=== PATIENT | female | born 1980 | race Caucasian/White ===

== ENCOUNTER 2024-10-26 20:54 | Inpatient (IN) | payer BC, OTHER ==
[~2024-10-26] VITALS: Ht 172.7 cm; Wt 117.0 kg
[2024-10-26 21:51] LABS: HEMATOCRIT. 32.7 % (36.0-48.0); HEMOGLOBIN. 10.8 g/dL (12.0-16.0); MEAN CORPUSCULAR HEMOGLOBIN 26.3 pg (28.0-32.0); MEAN CORPUSCULAR HGB CONC 32.9 g/dL (31.0-37.0); MEAN PLATELET VOLUME 9.2 fl (7.4-10.4); PLATELET 315 x1000/uL (130-400); RED BLOOD CELL COUNT 4.09 mill/uL (4.2-5.4); RED CELL DISTRIBUTION WIDTH 15.9 % (11.6-14.6); WHITE BLOOD COUNT 22.3 x1000/uL (4.5-11.0)
[2024-10-26 21:56] LABS: CHLORIDE 93 mEq/L (98-107); POTASSIUM 3.4 mEq/L (3.5-5.1); SODIUM 129 mEq/L (136-145)
[2024-10-26 21:57] LABS: CALCIUM 8.8 mg/dL (8.7-10.4); CARBON DIOXIDE 26 mEq/L (21-32)
[2024-10-26 22:00] LABS: DIFFERENTIAL COMMENT 1
[2024-10-26 22:02] LABS: CREATININE 0.8 mg/dL (0.6-1.0); GLUCOSE 126 mg/dL (70-105); UREA NITROGEN BLOOD 10 mg/dL (9-23)
[2024-10-26 23:07] LABS: ANISOCYTOSIS 1+; PLATELET ESTIMATE NORMAL
[2024-10-26 23:11] LABS: ALANINE AMINOTRANSFERASE 63 IU/L (10-49); ALBUMIN 3.4 g/dL (3.2-4.8); ASPARTATE AMINOTRANSFERASE 44 IU/L (<34); BILIRUBIN DIRECT 0.3 mg/dL (<=3.0); BILIRUBIN TOTAL 0.5 mg/dL (0.1-1.0); PROTEIN TOTAL 6.2 g/dL (6.0-8.3)
[2024-10-26] MEDS: ONDANSETRON HCL 4MG/2ML INJ IV STA (23:35)
[2024-10-26] MEDS: MORPHINE SULFATE 4 MG/ML INJ (FOR IV/IM USE) IV STA (23:35)
[2024-10-27] MEDS: SODIUM CHLORIDE 0.9% 1,000 ML IV ONE (01:11)
[2024-10-27] MEDS: IOHEXOL-300 100 ML BOTTLE ONE (01:26)
[2024-10-27] MEDS: PIPERACILLIN/TAZO 3.375G/50ML 50 ML IV NR (03:37)
[2024-10-27] MEDS: HYDROCODONE/ACETAMINOPHEN 5/325MG TABLET PO ONE (03:44)
[2024-10-27] MEDS: ACETAMINOPHEN 325MG TABLET PO NR (04:35)
[2024-10-27] MEDS: SODIUM CHLORIDE 0.9% 1,000 ML IV NR (04:35)
[2024-10-27 05:30] VITALS: BP 139/72; PULSE 119; RESP 18; TEMP 38.3
[2024-10-27] MEDS ORDERED: ACETAMINOPHEN 325MG TABLET PO PRN (07:00)
[2024-10-27] MEDS ORDERED: ONDANSETRON HCL 4MG TABLET PO PRN (07:00)
[2024-10-27] MEDS ORDERED: NALOXONE HCL 0.4MG/ML VIAL IV PRN ×2 (07:45→18:45)
[2024-10-27 08:00] VITALS: BP 129/54; PULSE 60; RESP 18; TEMP 36.4; O2SAT 95
[2024-10-27] MEDS: VANCOMYCIN 1,750 MG in DEXT 5% WATER 250 ML IV NR (09:00)
[2024-10-27] MEDS: ACETAMINOPHEN 325MG TABLET PO PRN (09:30)
[2024-10-27 10:57] LABS: POTASSIUM 3.1 mEq/L (3.5-5.1)
[2024-10-27 10:58] LABS: CALCIUM 7.9 mg/dL (8.7-10.4)
[2024-10-27 11:03] LABS: CREATININE 1.1 mg/dL (0.6-1.0)
[2024-10-27 11:09] LABS: HEMATOCRIT. 27.8 % (36.0-48.0); HEMOGLOBIN. 8.9 g/dL (12.0-16.0); MEAN CORPUSCULAR HEMOGLOBIN 25.3 pg (28.0-32.0); MEAN CORPUSCULAR VOLUME 78.9 fL (81.0-99.0); MEAN PLATELET VOLUME 9.5 fl (7.4-10.4); PLATELET 236 x1000/uL (130-400); RED BLOOD CELL COUNT 3.52 mill/uL (4.2-5.4); RED CELL DISTRIBUTION WIDTH 16.3 % (11.6-14.6); WHITE BLOOD COUNT 12.9 x1000/uL (4.5-11.0)
[2024-10-27 11:21] LABS: DIFFERENTIAL COMMENT 1
[2024-10-27 12:00] VITALS: BP 108/62; PULSE 76; RESP 16; TEMP 36.2; O2SAT 96
[2024-10-27] MEDS ORDERED: DOCUSATE SODIUM 100MG CAPSULE PO PRN (12:15)
[2024-10-27] MEDS ORDERED: IPRATROPIUM/ALBUTEROL 0.5-3(2.5)MG/3ML NEB HHN PRN (12:15)
[2024-10-27] MEDS: SODIUM CHLORIDE 0.9% 1,000 ML IV SCH (12:15)
[2024-10-27] MEDS ORDERED: CLONIDINE 0.1MG TABLET PO PRN (12:15)
[2024-10-27] MEDS ORDERED: PIPERACILLIN/TAZO 3.375G/100ML 100 ML IV SCH (14:00)
[2024-10-27] MEDS: PIPERACILLIN/TAZO 3.375G/50ML 50 ML IV SCH (14:19)
[2024-10-27] MEDS: METOPROLOL TARTRATE 5MG/5ML VIAL IV NR (14:26)
[2024-10-27 14:34] LABS: MICROCYTOSIS 1+; PLATELET ESTIMATE NORMAL
[2024-10-27 15:06] LABS: IRON 16 ug/dL (50-170)
[2024-10-27 15:08] LABS: TOTAL IRON BINDING CAPACITY 335 ug/dl (250-425)
[2024-10-27 15:11] LABS: T4 FREE 0.82 ng/dL (0.89-1.76); THYROID STIMULATING HORMONE 12.76 uIU/mL (0.55-4.78)
[2024-10-27 16:00] VITALS: BP 101/56; PULSE 71; RESP 17; TEMP 37.3; O2SAT 97
[2024-10-27 16:48] LABS: CREATINE KINASE MB FRACTION < 0.5 ng/mL (0.5-3.6)
[2024-10-27 16:51] LABS: FERRITIN 95 ng/mL (10-291)
[2024-10-27 16:52] LABS: TRIOIODOTHYRONINE TOTAL 0.55 ng/ml (0.60-1.81)
[2024-10-27 16:54] LABS: FOLIC ACID (FOLATE) SERUM > 20.00 ng/mL (>5.38); VITAMIN B12 SERUM 474 pg/mL (211-911)
[2024-10-27] MEDS: KCL 20MEQ/100ML PREMIX 100 ML IV SCH (17:01)
[2024-10-27] MEDS: ONDANSETRON HCL 4MG/2ML INJ IV PRN (17:01)
[2024-10-27 17:08] LABS: TROPONIN I HIGH SENSITIVITY 38 ng/L (3.0-34)
[2024-10-27] MEDS: HYDROCODONE/ACETAMINOPHEN 10/325MG TABLET PO PRN (17:47)
[2024-10-27] MEDS ORDERED: DEXTROSE 50% WATER 50ML SYRINGE IV PRN (18:45)
[2024-10-27 19:03] LABS: CLARITY URINE CLOUDY (CLEAR); COLOR URINE DARK YELLOW (YELLOW); GLUCOSE URINE NEGATIVE (NEGATIVE); KETONES URINE NEGATIVE (NEGATIVE); LEUKOCYTE ESTERASE URINE 1+ (NEGATIVE); NITRITE URINE NEGATIVE (NEGATIVE); OCCULT BLOOD URINE 1+ (NEGATIVE); PROTEIN URINE 2+ (NEGATIVE)
[2024-10-27 19:16] LABS: BACTERIA URINE 1+; SQUAMOUS EPITHELIAL CELL URINE 1+ /lpf (RARE/1+)
[2024-10-27 19:26] LABS: *AMPHETAMINES SCREEN URINE NEGATIVE (NEGATIVE)
[2024-10-27 19:28] LABS: *BARBITURATES SCREEN URINE NEGATIVE (NEGATIVE); *BENZODIAZEPINES SCREEN URINE NEGATIVE (NEGATIVE); *COCAINE SCREEN URINE NEGATIVE (NEGATIVE); METHADONE URINE SCREEN NEGATIVE (NEGATIVE)
[2024-10-27 19:29] LABS: CANNABINOID URINE SCREEN NEGATIVE (NEGATIVE); ECSTASY MDMA SCREEN URINE NEGATIVE (NEGATIVE); OPIATES URINE SCREEN PRESUMPTIVE POSITIVE (NEGATIVE); PHENCYCLIDINE URINE SCREEN NEGATIVE (NEGATIVE)
[2024-10-27 20:00] VITALS: BP 141/88; PULSE 114; RESP 20; TEMP 37.2; O2SAT 100
[2024-10-27] MEDS: POTASSIUM CHLORIDE 20MEQ TABLET SR PO NR (20:53)
[2024-10-27] MEDS: BLOOD SUGAR DIAGNOSTIC STRIP TEST SCH (21:00)
[2024-10-27] MEDS: INSULIN LISPRO 100 UNITS/ML SUBCUT SCH (21:00)
[2024-10-27] MEDS ORDERED: VANCOMYCIN 1G PREMIX 200 ML IV SCH (21:00)
[2024-10-27] MEDS: VANCOMYCIN 750MG PREMIX 150 ML IV SCH (21:01)
[2024-10-27] MEDS: METOPROLOL TARTRATE 50MG TABLET PO SCH (21:03)
[2024-10-27] MEDS: MORPHINE SULFATE 2 MG/ML INJ (NOT FOR IM USE) IV NR (22:51)
[2024-10-28] VITALS (7 sets, daily range): BP systolic 80–127; BP diastolic 48–82; PULSE 87–123; RESP 18–20; TEMP 36.3–38.9; O2SAT 94–98
[2024-10-28] MEDS: HYDROCODONE/ACETAMINOPHEN 5/325MG TABLET PO PRN (03:51)
[2024-10-28] MEDS: PANTOPRAZOLE 40MG DR TABLET PO SCH (07:20)
[2024-10-28] MEDS: LEVOTHYROXINE SODIUM 50MCG TABLET PO SCH (10:45)
[2024-10-28] MEDS: DILTIAZEM HCL 30MG TABLET PO SCH (10:46)
[2024-10-28] MEDS: ACETAMINOPHEN 325MG TABLET PO PRN ×2 (10:46→21:35)
[2024-10-28] MEDS: CYANOCOBALAMIN 1000MCG/ML VIAL IM NR (10:47)
[2024-10-28] MEDS: FUROSEMIDE 40MG/4ML VIAL IVP NR (10:47)
[2024-10-28 11:41] LABS: HEMOGLOBIN. 9.8 g/dL (12.0-16.0); MEAN CORPUSCULAR HEMOGLOBIN 25.7 pg (28.0-32.0); MEAN CORPUSCULAR HGB CONC 32.5 g/dL (31.0-37.0); MEAN CORPUSCULAR VOLUME 78.9 fL (81.0-99.0); MEAN PLATELET VOLUME 9.9 fl (7.4-10.4); PLATELET 248 x1000/uL (130-400); RED CELL DISTRIBUTION WIDTH 16.5 % (11.6-14.6); WHITE BLOOD COUNT 10.5 x1000/uL (4.5-11.0)
[2024-10-28 11:44] LABS: DIFFERENTIAL COMMENT 1
[2024-10-28 11:46] LABS: INR 1.1; PROTHROMBIN TIME 11.5 sec (9.6-11.0)
[2024-10-28 11:52] LABS: CARBON DIOXIDE 21 mEq/L (21-32); CHLORIDE 95 mEq/L (98-107); SODIUM 126 mEq/L (136-145)
[2024-10-28 11:57] LABS: CREATININE 1.2 mg/dL (0.6-1.0); GLUCOSE 135 mg/dL (70-105)
[2024-10-28 11:58] LABS: UREA NITROGEN BLOOD 19 mg/dL (9-23)
[2024-10-28 11:59] LABS: ALANINE AMINOTRANSFERASE 53 IU/L (10-49); ALBUMIN 3.2 g/dL (3.2-4.8); ASPARTATE AMINOTRANSFERASE 79 IU/L (<34); CREATINE KINASE 115 IU/L (34-145)
[2024-10-28 12:00] LABS: BILIRUBIN DIRECT 0.5 mg/dL (<=3.0); BILIRUBIN TOTAL 0.9 mg/dL (0.1-1.0); PHOSPHORUS 2.2 mg/dL (2.5-4.9); PROTEIN TOTAL 6.1 g/dL (6.0-8.3)
[2024-10-28 12:34] LABS: CREATINE KINASE MB FRACTION < 0.5 ng/mL (0.5-3.6)
[2024-10-28] MEDS: FERROUS SULFATE 325MG TABLET PO SCH (13:40)
[2024-10-28 13:54] LABS: ANISOCYTOSIS 1+; MICROCYTOSIS 1+; PLATELET ESTIMATE NORMAL
[2024-10-28 14:13] LABS: TROPONIN I HIGH SENSITIVITY 189 ng/L (3.0-34)
[2024-10-28] MEDS: CEFAZOLIN 2000MG PREMIX 50 ML IV SCH (15:47)
[2024-10-28] MEDS ORDERED: SODIUM CHLORIDE 0.9% 500 ML IV NR (16:30)
[2024-10-28] MEDS: MIDODRINE HCL 5MG TABLET PO SCH (17:43)
[2024-10-29] VITALS: BP 115/63; PULSE 108; RESP 19; TEMP 37.9; O2SAT 98
[2024-10-29 04:00] VITALS: BP 128/76; PULSE 120; RESP 19; TEMP 36.2; O2SAT 96
[2024-10-29] MEDS: LEVOTHYROXINE SODIUM 100MCG TABLET PO SCH (06:44)
[2024-10-29 07:04] LABS: HEMATOCRIT. 26.5 % (36.0-48.0); HEMOGLOBIN. 8.9 g/dL (12.0-16.0); MEAN CORPUSCULAR HEMOGLOBIN 26.1 pg (28.0-32.0); MEAN CORPUSCULAR HGB CONC 33.6 g/dL (31.0-37.0); MEAN CORPUSCULAR VOLUME 77.8 fL (81.0-99.0); MEAN PLATELET VOLUME 10.1 fl (7.4-10.4); PLATELET 248 x1000/uL (130-400); RED BLOOD CELL COUNT 3.41 mill/uL (4.2-5.4); WHITE BLOOD COUNT 10.5 x1000/uL (4.5-11.0)
[2024-10-29 07:13] LABS: DIFFERENTIAL COMMENT 1
[2024-10-29 07:14] LABS: CHLORIDE 95 mEq/L (98-107); POTASSIUM 3.1 mEq/L (3.5-5.1); SODIUM 129 mEq/L (136-145)
[2024-10-29 07:15] LABS: CALCIUM 7.8 mg/dL (8.7-10.4); CARBON DIOXIDE 22 mEq/L (21-32)
[2024-10-29 07:19] LABS: CREATINE KINASE 90 IU/L (34-145)
[2024-10-29 07:20] LABS: CREATININE 1.2 mg/dL (0.6-1.0); GLUCOSE 132 mg/dL (70-105); UREA NITROGEN BLOOD 19 mg/dL (9-23)
[2024-10-29 07:21] LABS: CREATINE KINASE MB FRACTION 0.6 ng/mL (0.5-3.6)
[2024-10-29 07:22] LABS: PHOSPHORUS 2.4 mg/dL (2.5-4.9)
[2024-10-29 08:00] VITALS: BP 138/80; PULSE 112; RESP 20; TEMP 36.4; O2SAT 98
[2024-10-29 08:31] LABS: TROPONIN I HIGH SENSITIVITY 81 ng/L (3.0-34)
[2024-10-29] MEDS: POTASSIUM CHLORIDE 20MEQ TABLET SR PO NR (10:34)
[2024-10-29] MEDS: MAGNESIUM 2 G PREMIX 50 ML IV NR (10:34)
[2024-10-29 12:00] VITALS: BP 150/90; PULSE 103; RESP 22; TEMP 36.3; O2SAT 98
[2024-10-29] MEDS: POTASSIUM PHOSPHATE 20 MMOL in DEXT 5% WATER 243.3333 ML IV NR (14:00)
[2024-10-29 14:07] LABS: CORTISOL 22.2 ucg/dL
[2024-10-29 14:26] LABS: ANISOCYTOSIS 1+; MICROCYTOSIS 1+; PLATELET ESTIMATE NORMAL; TARGET CELLS FEW
[2024-10-29 14:39] LABS: HEPATITIS B SURFACE ANTIGEN NEGATIVE (Negative)
[2024-10-29 14:43] LABS: HEPATITIS A AB IGM NEGATIVE (Negative)
[2024-10-29 14:44] LABS: HEPATITIS B CORE AB IGM NEGATIVE (Negative)
[2024-10-29 14:45] LABS: HEPATITIS C AB NON REACTIVE (Neg) (Negative)
[2024-10-29 16:00] VITALS: BP 130/76; PULSE 91; RESP 16; TEMP 36.7; O2SAT 98
[2024-10-29] MEDS ORDERED: NON FORMULARY MED XX SCH (16:15)
[2024-10-29] MEDS: IRON SUCROSE COMPLEX 100 MG/5 ML ML IV SCH (18:12)
[2024-10-29 20:00] VITALS: BP 156/97; PULSE 108; RESP 19; TEMP 36.5; O2SAT 100
[2024-10-29] MEDS: FAMOTIDINE 20MG/2ML VIAL IV SCH (22:39)
[2024-10-30] VITALS (7 sets, daily range): BP systolic 136–171; BP diastolic 85–108; PULSE 87–110; RESP 18–20; TEMP 36.6–37.8; O2SAT 96–100
[2024-10-30 08:54] LABS: CARBON DIOXIDE 25 mEq/L (21-32); CHLORIDE 100 mEq/L (98-107); POTASSIUM 3.7 mEq/L (3.5-5.1); SODIUM 136 mEq/L (136-145)
[2024-10-30 08:55] LABS: CALCIUM 7.9 mg/dL (8.7-10.4)
[2024-10-30 09:00] LABS: CREATININE 0.9 mg/dL (0.6-1.0); GLUCOSE 87 mg/dL (70-105); TRIGLYCERIDE 309 mg/dL (0-150); UREA NITROGEN BLOOD 11 mg/dL (9-23)
[2024-10-30 09:01] LABS: LDL CHOLESTEROL 53 mg/dL (5-100)
[2024-10-30 09:02] LABS: CHOLESTEROL 116 mg/dL (<200); PHOSPHORUS 2.4 mg/dL (2.5-4.9)
[2024-10-30 09:06] LABS: HEMATOCRIT. 29.8 % (36.0-48.0); HEMOGLOBIN. 9.8 g/dL (12.0-16.0); MEAN CORPUSCULAR HGB CONC 32.8 g/dL (31.0-37.0); MEAN CORPUSCULAR VOLUME 79.3 fL (81.0-99.0); MEAN PLATELET VOLUME 10.1 fl (7.4-10.4); PLATELET 306 x1000/uL (130-400); RED BLOOD CELL COUNT 3.75 mill/uL (4.2-5.4); RED CELL DISTRIBUTION WIDTH 16.5 % (11.6-14.6); WHITE BLOOD COUNT 16.5 x1000/uL (4.5-11.0)
[2024-10-30 09:55] LABS: DIFFERENTIAL COMMENT 1
[2024-10-30] MEDS: POTASSIUM PHOSPHATE 20 MMOL in DEXT 5% WATER 243.3333 ML IV NR (11:08)
[2024-10-30] MEDS: POTASSIUM-SODIUM PHOSPHATE POWDER PACKET PO NR (12:10)
[2024-10-30] MEDS: MORPHINE SULFATE 4 MG/ML INJ (FOR IV/IM USE) IV PRN (13:19)
[2024-10-30 19:50] LABS: HDL CHOLESTEROL < 20 mg/dL (>65)
[2024-10-30 21:16] LABS: ANISOCYTOSIS 1+; MICROCYTOSIS 1+; PLATELET ESTIMATE NORMAL
[2024-10-31] VITALS (7 sets, daily range): BP systolic 120–170; BP diastolic 64–99; PULSE 90–123; RESP 17–20; TEMP 36.4–38.6; O2SAT 96–97
[2024-10-31 06:14] LABS: HEMOGLOBIN. 8.5 g/dL (12.0-16.0); MEAN CORPUSCULAR HEMOGLOBIN 26.6 pg (28.0-32.0); MEAN CORPUSCULAR HGB CONC 33.9 g/dL (31.0-37.0); MEAN CORPUSCULAR VOLUME 78.5 fL (81.0-99.0); MEAN PLATELET VOLUME 9.6 fl (7.4-10.4); PLATELET 309 x1000/uL (130-400); RED BLOOD CELL COUNT 3.18 mill/uL (4.2-5.4); RED CELL DISTRIBUTION WIDTH 16.5 % (11.6-14.6); WHITE BLOOD COUNT 16.3 x1000/uL (4.5-11.0)
[2024-10-31 06:33] LABS: CHLORIDE 101 mEq/L (98-107); DIFFERENTIAL COMMENT 1; POTASSIUM 3.8 mEq/L (3.5-5.1); SODIUM 135 mEq/L (136-145)
[2024-10-31 06:34] LABS: CALCIUM 7.9 mg/dL (8.7-10.4); CARBON DIOXIDE 24 mEq/L (21-32)
[2024-10-31 06:39] LABS: CREATININE 0.9 mg/dL (0.6-1.0); GLUCOSE 136 mg/dL (70-105)
[2024-10-31 06:40] LABS: UREA NITROGEN BLOOD 6 mg/dL (9-23)
[2024-10-31 06:42] LABS: PHOSPHORUS 2.8 mg/dL (2.5-4.9)
[2024-10-31] MEDS ORDERED: MORPHINE SULFATE 4 MG/ML INJ (FOR IV/IM USE) IV PRN (13:45)
[2024-10-31] MEDS: CEFTRIAXONE 2GM/50ML 50 ML IV SCH (15:03)
[2024-10-31] MEDS ORDERED: ACETAMINOPHEN 500MG TABLET PO SCH (15:30)
[2024-10-31 16:41] LABS: MICROCYTOSIS 1+; PLATELET ESTIMATE NORMAL
[2024-10-31] MEDS ORDERED: ACETAMINOPHEN 500MG TABLET PO PRN (17:00)
[2024-10-31] MEDS: MORPHINE SULFATE 2 MG/ML INJ (NOT FOR IM USE) IV PRN (17:11)
[2024-10-31] MEDS: SENNOSIDES/DOCUSATE SOD 8.6/50MG TABLET PO SCH (23:52)
[2024-10-31] MEDS: HYDROCODONE/ACETAMINOPHEN 5/325MG TABLET PO PRN (23:53)
[2024-11-01 04:00] VITALS: BP 122/77; PULSE 101; RESP 19; TEMP 37.2; O2SAT 98
[2024-11-01 07:40] LABS: HEMATOCRIT. 24.5 % (36.0-48.0); HEMOGLOBIN. 7.9 g/dL (12.0-16.0); MEAN CORPUSCULAR HEMOGLOBIN 25.9 pg (28.0-32.0); MEAN CORPUSCULAR HGB CONC 32.3 g/dL (31.0-37.0); MEAN CORPUSCULAR VOLUME 80.1 fL (81.0-99.0); MEAN PLATELET VOLUME 9.7 fl (7.4-10.4); PLATELET 330 x1000/uL (130-400); RED BLOOD CELL COUNT 3.05 mill/uL (4.2-5.4); RED CELL DISTRIBUTION WIDTH 16.7 % (11.6-14.6); WHITE BLOOD COUNT 13.7 x1000/uL (4.5-11.0)
[2024-11-01 07:49] LABS: CHLORIDE 102 mEq/L (98-107); POTASSIUM 3.4 mEq/L (3.5-5.1); SODIUM 138 mEq/L (136-145)
[2024-11-01 07:52] LABS: CALCIUM 7.8 mg/dL (8.7-10.4); CARBON DIOXIDE 25 mEq/L (21-32)
[2024-11-01 07:57] LABS: CREATININE 0.8 mg/dL (0.6-1.0); GLUCOSE 158 mg/dL (70-105)
[2024-11-01 07:58] LABS: ALBUMIN 2.7 g/dL (3.2-4.8)
[2024-11-01 07:59] LABS: ALANINE AMINOTRANSFERASE 49 IU/L (10-49); ASPARTATE AMINOTRANSFERASE 92 IU/L (<34); BILIRUBIN DIRECT 0.1 mg/dL (<=3.0); BILIRUBIN TOTAL 0.3 mg/dL (0.1-1.0); PROTEIN TOTAL 5.4 g/dL (6.0-8.3)
[2024-11-01 08:00] VITALS: BP 145/95; PULSE 96; RESP 18; TEMP 36.4; O2SAT 97
[2024-11-01 08:02] LABS: UREA NITROGEN BLOOD < 5 mg/dL (9-23)
[2024-11-01 08:40] LABS: DIFFERENTIAL COMMENT 1
[2024-11-01] MEDS: POTASSIUM CHLORIDE 20MEQ TABLET SR PO SCH (09:53)
[2024-11-01 12:00] VITALS: BP 148/96; PULSE 92; RESP 17; TEMP 36.1; O2SAT 98
[2024-11-01 16:00] VITALS: BP 150/75; PULSE 98; RESP 18; TEMP 36.1; O2SAT 99
[2024-11-01 16:54] LABS: PLATELET ESTIMATE NORMAL
[2024-11-01 16:55] LABS: ANISOCYTOSIS 1+
[2024-11-01 20:00] VITALS: BP 140/78; PULSE 106; RESP 20; TEMP 36.7; O2SAT 96
[2024-11-01] MEDS: MORPHINE SULFATE 4 MG/ML INJ (FOR IV/IM USE) IV PRN (23:09)
[2024-11-02] VITALS: BP 155/91; PULSE 94; RESP 19; TEMP 36.4; O2SAT 96
[2024-11-02 04:00] VITALS: BP 155/86; PULSE 100; RESP 20; TEMP 36.5; O2SAT 96
[2024-11-02 08:00] VITALS: BP 125/74; PULSE 105; RESP 19; TEMP 35.9; O2SAT 93
[2024-11-02 11:24] LABS: CHLORIDE 101 mEq/L (98-107); POTASSIUM 4.2 mEq/L (3.5-5.1); SODIUM 137 mEq/L (136-145)
[2024-11-02 11:25] LABS: CALCIUM 8.2 mg/dL (8.7-10.4); CARBON DIOXIDE 28 mEq/L (21-32)
[2024-11-02 11:26] LABS: HEMATOCRIT. 29.9 % (36.0-48.0); HEMOGLOBIN. 9.4 g/dL (12.0-16.0); MEAN CORPUSCULAR HGB CONC 31.6 g/dL (31.0-37.0); MEAN CORPUSCULAR VOLUME 82.6 fL (81.0-99.0); MEAN PLATELET VOLUME 9.1 fl (7.4-10.4); PLATELET 408 x1000/uL (130-400); RED BLOOD CELL COUNT 3.62 mill/uL (4.2-5.4); RED CELL DISTRIBUTION WIDTH 16.9 % (11.6-14.6); WHITE BLOOD COUNT 12.1 x1000/uL (4.5-11.0)
[2024-11-02 11:30] LABS: CREATININE 0.7 mg/dL (0.6-1.0); GLUCOSE 115 mg/dL (70-105); UREA NITROGEN BLOOD 6 mg/dL (9-23)
[2024-11-02 11:32] LABS: ALANINE AMINOTRANSFERASE 63 IU/L (10-49); ALBUMIN 3.3 g/dL (3.2-4.8); ASPARTATE AMINOTRANSFERASE 94 IU/L (<34); BILIRUBIN DIRECT 0.2 mg/dL (<=3.0); CREATINE KINASE 39 IU/L (34-145); PHOSPHORUS 3.3 mg/dL (2.5-4.9); PROTEIN TOTAL 6.4 g/dL (6.0-8.3)
[2024-11-02 11:33] LABS: BILIRUBIN TOTAL 0.4 mg/dL (0.1-1.0)
[2024-11-02 12:00] VITALS: BP 138/86; PULSE 113; RESP 19; TEMP 36.6; O2SAT 96
[2024-11-02 12:19] LABS: DIFFERENTIAL COMMENT 1
[2024-11-02] MEDS ORDERED: LEVO50TA8 MT (14:48)
[2024-11-02] MEDS ORDERED: LIP40 MT (14:48)
[2024-11-02] MEDS ORDERED: KETO10TA2 MT (14:48)
[2024-11-02] MEDS ORDERED: DILT30TA37 MT (14:48)
[2024-11-02] MEDS ORDERED: SENN-371 MT (14:48)
[2024-11-02] MEDS ORDERED: LEVO750T68 MT (14:48)
[2024-11-02 16:00] VITALS: BP 145/78; RESP 18; TEMP 36.8; O2SAT 97
[2024-11-02 16:10] VITALS: BP 138/86; PULSE 113; TEMP 97.9; O2SAT 96
[2024-11-03 00:26] LABS: ATYPICAL LYMPHOCYTES 2
[2024-11-03 00:27] LABS: ANISOCYTOSIS 1+; PLATELET ESTIMATE SLIGHTLY INCREASED
== END 2024-11-02 17:36 | disposition home or self-care (01) | DRG 871 ==
LOC: ER 20:54 → 7EST 10-27 03:45 → EDBEDREQTM 10-27 03:57 → EDBEDREQ 10-27 03:57 → 6WST 10-27 09:18
PROVIDERS: ADMIT Internal Medicine; ATTEND Internal Medicine
DX: A41.51 Sepsis due to Escherichia coli [E. coli] (principal); I21.4 Non-ST elevation (NSTEMI) myocardial infarction; N12 Tubulo-interstitial nephritis, not specified as acute or chronic; E87.1 Hypo-osmolality and hyponatremia; N17.9 Acute kidney failure, unspecified; E03.9 Hypothyroidism, unspecified; E87.6 Hypokalemia; E11.9 Type 2 diabetes mellitus without complications; D50.9 Iron deficiency anemia, unspecified; D25.9 Leiomyoma of uterus, unspecified; F17.210 Nicotine dependence, cigarettes, uncomplicated; I10 Essential (primary) hypertension; K76.0 Fatty (change of) liver, not elsewhere classified; R16.0 Hepatomegaly, not elsewhere classified; M79.7 Fibromyalgia; E83.39 Other disorders of phosphorus metabolism; E83.42 Hypomagnesemia; D50.8 Other iron deficiency anemias; Z79.899 Other long term (current) drug therapy; Z98.84 Bariatric surgery status
CPT/HCPCS: 36415; 71045; 74177; 76705; 76830; 76856; 80048; 80061; 80076; 80305; 80320; 81003; 82533; 82550; 82553; 82607; 82728; 82746; 82962; 83036; 83540; 83550; 83605; 83735; 83880; 83930; 84100; 84145; 84439; 84443; 84480; 84484; 85025; 86705; 86709; 87077; 87186; 87340; 93005; 99291; A4606; J0690; J0696; J1940; J2270; J2405; J2543; J3370; J3420; J3475; J3480; J3490; J7030; J7060; Q9967; G0480